=== PATIENT | female | born 1960 | race Caucasian/White ===

== ENCOUNTER → 2018-08-13 | Outpatient (REF) | payer MEDICARE, BC ==
[~2018-08-13] MED LIST: ALENDRONATE70 MG PO; ALLEGRA-D 1212 HOUR PO; AUGMENTIN500TAB PO; CELEBREX200 MG PO; CYMBALTA20 MG PO; CYMBALTA30 MG PO; FLEXERIL PO; FLONASE NASAL50 MCG; FOSAMAX70 MG PO; LOTRISONE EX; METO25TAB PO; METO50TA52 PO; TESSALON PER100 MG PO; VENTOLIN HFA IN; XANAX0.25 MG PO; ZITHROMAX250 MG PO; ZPAK PO; [UNRECOGNIZED DRUG - CODE] OR
[2018-08-13 12:10] LABS: HEMOGLOBIN 14.5 g/dl (12.0-16.0); IMMATURE GRANULOCYTES 0.3 % (0.0-5.0); MEAN CORPUSCULAR HGB CONC 32.2 g/L CALC (32.0-36.0); NEUT# 3.44 thou/uL (2.00-7.15); RED CELL DISTRI WIDTH 13.1 % (11.5-15.5)
[2018-08-13 12:42] LABS: ALBUMIN 4.4 g/dL (3.2-5.0); ALKALINE PHOSPHATASE 85 u/l (38-126); ANION GAP 15 (6-22 (CALC)); BILIRUBIN, TOTAL 0.5 mg/dL (0.0-1.4); BUN 12 mg/dL (7-17); BUN/CREATININE RATIO 17 (12-20 (CALC)); CALCULATED LDLCHOLESTEROL 100 mg/dL (62-129 (CALC)); CARBON DIOXIDE 24 mmol/l (22-30); CHLORIDE 103 mmol/l (95-108); CHOLESTEROL HDL RATIO 2.8 (<4.4 (CALC)); CREATININE 0.7 mg/dL (0.5-1.0); GFR > 60 ML/MIN (>=60 (CALC)); GFR FOR AFR.AMER. > 60 ML/MIN (>=60 (CALC)); HDL CHOLESTEROL 69 mg/dL (>=40); POTASSIUM 3.9 mmol/l (3.5-5.1); SGOT/AST 24 u/l (14-36); SODIUM 139 mmol/l (137-146); TOTAL CHOLESTEROL 192 mg/dl (0-199); TOTAL TRIGLYCERIDES 111 mg/dl (30-149); VLDL CHOLESTROL 22 mg/dl (2-49 (CALC))
[2018-08-13 14:06] LABS: URINE BILIRUBIN - DIPSTICK NEGATIVE (NEGATIVE); URINE BLOOD DIPSTICK NEGATIVE (NEGATIVE); URINE COLOR YELLOW; URINE GLUCOSE - DIPSTICK NEGATIVE (NEGATIVE); URINE KETONE NEGATIVE (NEGATIVE); URINE LEUK ESTERASE TRACE (NEGATIVE); URINE NITRITE - DIPSTICK NEGATIVE (Negative); URINE PROTEIN - DIPSTICK NEGATIVE (NEG-TRACE); URINE UROBILINOGEN - DIPSTICK 0.2 E.U./dL (0.2)
[2018-08-13 14:07] LABS: URINE CLARITY SL CLOUDY
== END | disposition home or self-care (01) ==
LOC: LAB 11:45
PROVIDERS: ATTEND Internal Medicine Geriatric Medicine
DX: I10 Essential (primary) hypertension (principal)

== ENCOUNTER → 2018-08-18 | Outpatient (REF) | payer MEDICARE, BC | END | disposition home or self-care (01) | LOC: MAMMO 14:14 | PROVIDERS: ATTEND Internal Medicine Geriatric Medicine | DX: Z12.31 Encounter for screening mammogram for malignant neoplasm of breast (principal) ==